=== PATIENT | female | born 1970 | race African-American/Black ===

== ENCOUNTER 2020-03-31 07:05 | Inpatient (IN) | payer BC ==
[~2020-03-31] VITALS: Ht 160 cm; Wt 88.5 kg
[2020-03-31] MEDS ORDERED: MORPHINE 4 MG/ML INJ. SYRINGE IVP PRN (11:00)
[2020-03-31] MEDS ORDERED: ONDANSETRON HCL 4 MG/2 ML VIAL IVP PRN ×2 (11:00→11:30)
[2020-03-31] MEDS ORDERED: KETOROLAC TROMETHAMINE 30 MG VIAL IVP PRN (11:30)
[2020-03-31] MEDS ORDERED: BISACODYL 10 MG/SUPPOSITORY RC PRN (11:30)
[2020-03-31] MEDS ORDERED: OXYCODONE/ACETAMINOPHEN 5-325 TABLET PO PRN ×2 (11:30)
[2020-03-31] MEDS ORDERED: HYDROmorphone 2 MG TAB PO PRN (11:30)
[2020-03-31] MEDS ORDERED: SIMETHICONE 80 MG TAB.CHEW PO PRN (11:30)
[2020-03-31] MEDS ORDERED: SEVOFLURANE 15 MIN GAS INH ONE (11:40)
[2020-03-31] MEDS ORDERED: fentaNYL CITRATE/PF 100 MCG/2 ML AMP ONE (11:40)
[2020-03-31] MEDS ORDERED: WATER FOR IRRIGATION,STERILE 1,000 ML IRRIG.SOLN IR ONE (11:40)
[2020-03-31] MEDS ORDERED: SUCCINYLCHOLINE CHLORIDE 20 MG/ML(QUELICIN) ONE (11:40)
[2020-03-31] MEDS ORDERED: MIDAZOLAM HCL 5 MG/ML VIAL (VERSED) IV ONE (11:40)
[2020-03-31] MEDS ORDERED: PROPOFOL 200MG/ 20ML VIAL (DIPRIVAN) IV ONE (11:40)
[2020-03-31] MEDS ORDERED: LR 1,000 ML IV.SOLN IV ONE (11:40)
[2020-03-31] MEDS ORDERED: GLYCOPYRROLATE 0.2 MG/ML VIAL ONE (11:40)
[2020-03-31] MEDS ORDERED: CEFAZOLIN 2 GM IVPB PREMIX 50 ML IV ONE (11:40)
[2020-03-31] MEDS ORDERED: ONDANSETRON HCL 4 MG/2 ML VIAL ONE ×2 (11:40→12:12)
[2020-03-31] MEDS ORDERED: LIDOCAINE 1% 10 MG/ML, 20 ML MDV ONE (11:40)
[2020-03-31] MEDS ORDERED: ROCURONIUM BROMIDE 10 MG/ML (ZEMURON) ONE (11:40)
[2020-03-31] MEDS ORDERED: NEOSTIGMINE METHYLSULFATE 1 MG/ML, 10 ML VIAL ONE (11:40)
[2020-03-31] MEDS ORDERED: NS IRRIG SOLN 1000 ML IR ONE (11:40)
[2020-03-31] MEDS: HYDROmorphone 1 MG INJ. 1 MG/ML AMPUL IVP PRN ×2 (11:52→12:28)
[2020-03-31] MEDS ORDERED: HYDROmorphone 2 MG/ML VIAL ONE (12:05)
[2020-03-31] MEDS ORDERED: NALOXONE HCL 0.4 MG/ML AMP (NARCAN) IVP PRN (12:15)
[2020-03-31] MEDS ORDERED: HYDROMORPHONE PCA 10 mg/50 mL IV PRN (12:15)
[2020-03-31] MEDS ORDERED: ACYC400T PO (13:31)
--- NOTE | 2020-03-31 13:31 | NUR ---
ADMIT NOTE Received pt AAOx4, no s/s resp distress, no c/o pain or discomfort-pt on HARDBOARD SUPERVISOR Dilaudid 0.5mg Q 15 min, 2 mg 4 hour limit. Pt on LR at 125 ml/hr to right wrist with no s/s infiltration to site. Davis draining to gravity with yellow urine. BLE with SCDs in place. Dressing to lower abd clean, dry and intact. Band to mid abd slightly above belly button clean. dry and intact. Plan of care for the day reviewed with pt-pt verbalized her understanding. Pt oriented to room, call light, pain management, skin and safety discussed-teach back done. Call light within reach.
[2020-03-31 14:00] VITALS: BP_SYST 122
[2020-03-31] MEDS: LR 1,000 ML IV SCH ×2 (15:35→22:28)
--- NOTE | 2020-03-31 15:48 | NUR ---
NAUSEA Pt sat up in bed and then a some nausea-pt given Zofran as ordered. Light turned down low to promote rest. Needs met, call light within reach.
[2020-03-31 16:15] VITALS: BP_SYST 106
--- NOTE | 2020-03-31 19:30 | NUR ---
CLOSING NOTE Pt resting quietly in bed with no s/s resp distress, pt c/o mild pain-using BODY MAKE UP ARTIST Dilaudid. Pt given Jello x2 per request. Needs met, call light within reach.
[2020-03-31 21:00] VITALS: BP_SYST 114
[2020-03-31] MEDS ORDERED: TEMAZEPAM 15 MG CAPSULE PO PRN (21:00)
--- NOTE | 2020-03-31 21:15 | NUR ---
ABDOMINAL DRESSING CLEAN DRY ALSO INTACT NO BLEEDING NOTED skin dry warm patient Watching TV .
[2020-04-01 00:14] VITALS: BP_SYST 114
--- NOTE | 2020-04-01 00:19 | NUR ---
Patient awake alert verbally indicative does ambulate Respirations Remain Regular also unlabored call villegas with patient .
--- NOTE | 2020-04-01 00:22 | NUR ---
DILAUDID POWER PRESS OPERATOR PUMP DOSE 0.5 MG LOCK OUT 15 MINUTE MAX HOUR LIMIT 2 MG . NO ACUTE DISTRESS .
--- NOTE | 2020-04-01 02:54 | NUR ---
Hourly Rounding Patient Resting this hour chest movement symmetrical verbally Responsive call villegas with patient Fall MEASURES IMPLEMENTED / .
--- NOTE | 2020-04-01 04:42 | NUR ---
REGALADO catheter has been d/c patient awake also alert no complaints made .
[2020-04-01] MEDS: LR 1,000 ML IV SCH ×3 (04:47→19:25)
--- NOTE | 2020-04-01 06:28 | NUR ---
ASSIST OUT OF BED AMBULATES USING REST ROOM URINATING , ALERT & ORIENTED no complaints made .
--- NOTE | 2020-04-01 07:30 | NUR ---
Opening Notes Patient is awake, alert and oriented x4. No resp distress noted. Breathing is even and unlabored. Patient is ambulatory with assistance. Patient denies any pain at this time. APARTMENT MAINTENANCE SUPERVISOR pump at bedside, available for the patient to push for pain relief. IV site on right hand, 22 gauge, intact, LR @ 125 ml/hr, infusing well. No bleeding noted at incision site on lower abdomen. All needs met at this time. Safety and fall precautions in place. Call light within reach. Bed in lowest position, locked. Will continue to monitor
[2020-04-01 08:00] VITALS: BP_SYST 145
--- NOTE | 2020-04-01 08:00 | NUR ---
Dr. King is at patients bedside
[2020-04-01 09:20] LABS: BASOPHILS % (AUTO) 0.3 % (0.0-2.0); EOSINOPHILS % (AUTO) 0.4 % (0.0-4.0); HEMATOCRIT 37.9 % (36-48); HEMOGLOBIN 12.8 g/dL (12.0-16.0); LYMPHOCYTES # (AUTO) 1.3 K/uL (1.0-5.5); LYMPHOCYTES % (AUTO) 21.3 % (20.5-51.5); MEAN CORPUSCULAR HEMOGLOBIN 29 pg (27-31); MEAN CORPUSCULAR HGB CONC 34 % (32-36); MEAN CORPUSCULAR VOLUME 86 fL (79.0-98.0); MONOCYTES # (AUTO) 0.4 K/uL (0.0-1.0); MONOCYTES % (AUTO) 7.3 % (1.7-9.3); NEUTROPHILS # (AUTO) 4.2 K/uL (1.8-7.7); NEUTROPHILS % (AUTO) 70.7 % (40.0-70.0); PLATELET COUNT (AUTO) 171 K/uL (130-430); RED CELL DISTRIBUTION WIDTH 13.1 % (9.0-15.0)
--- NOTE | 2020-04-01 09:29 | NUR ---
PAGED PAGED AT [phone] SPOKE WITH EXCHANGE.
--- NOTE | 2020-04-01 09:50 | NUR ---
DC DATA ENTRY CLERK Pump Obtained new orders from Dr. King to DC DATA ENTRY CLERK pump. Patient has PRN pain medications PO, if needed. Plan is to discharge patient tomorrow. Noted and carried out.
--- NOTE | 2020-04-01 10:00 | NUR ---
Notes Patient is awake, alert and oriented x4. No resp distress noted. Breathing is even and unlabored. Patient denies any pain at this time. All needs met at this time. Safety and fall precautions in place. Bed in lowest position, locked. Will continue to monitor.
[2020-04-01] MEDS: IBUPROFEN 800 MG TABLET PO PRN ×2 (11:59→20:09)
--- NOTE | 2020-04-01 12:00 | NUR ---
Notes/Pain Patient is awake, alert and oriented x4. Patient c/o 8/10 general body pain. Administered Motrin 800 mg PO, tolerated well. Patient is eating lunch at this time. No resp distress. Breathing is even and unlabored. Safety and fall precautions in place. Call light within reach. Bed in lowest position, alarm on, locked.
--- NOTE | 2020-04-01 14:00 | NUR ---
Notes Patient is awake, alert and oriented, watching TV in bed. NO resp distress noted. Breathing is even and unlabored. Patient reports relief from pain. Patients incision site was noted with minimal bleeding, controlled at this time. Patient is ambulatory with assistance. Nurse assisted patient to restroom. All needs met at this time. Safety and fall precautions in place. Call light within reach. Bed in lowest position, locked.
--- NOTE | 2020-04-01 16:17 | NUR ---
Instructional Support Assistant: Conduct a DCPA FARM CONTRACTOR met with pt. bedside. She had been resting with her eyes closed. FARM CONTRACTOR introduced self. Pt. was kind and pleasant. She stated she was comfortable and was not in any pain. She stated she was ambulating, but was instructed not to do so. She was able to confirm her demographic info. on the facesheet. She stated she has a good support system in place. She has her daughter, Carrie who is local and her boyfriend, Cleveland Adamson who will be checking in on her. FARM CONTRACTOR asked pt. if she ever needed any mental lesely services such as therapy, ever been Dx. with any depression, anxieyt etc. Pt. stated she resides alone, but has two small dogs that are like her therapy. She divulged that she is at [facility] for the past 7 years and during that time she had been anxious. She stated she does not feel anxious. Pt. stated she has never felt suicidal. Pt. did not have any issues of concern nor did she have any needs. FARM CONTRACTOR will remain available as needed.
--- NOTE | 2020-04-01 16:43 | NUR ---
Notes Patient is resting at this time. Nurse assisted patient to the restroom. Patient reports no BM for the past few days. Will give stool softener. No resp distress noted. Breathing is even and unlabored. All needs met at this time. Bed in lowest position, locked.
[2020-04-01] MEDS: DOCUSATE SODIUM 100 MG CAPSULE PO PRN ×2 (17:17→20:55)
--- NOTE | 2020-04-01 17:30 | NUR ---
Colace Patient c/o having no BM for a few days. Administered Colace PO, tolerated well. Will monitor for BM.
[2020-04-01 19:00] VITALS: BP_SYST 151
--- NOTE | 2020-04-01 19:15 | NUR ---
change of shift.pt.status s/p surgery x 1day.pt.had recieved the administration dilaudid via slide fastener chain assembler pump;\d/c:04/01/20.to f/u re;pain mgx.pt.presents incision;location;abdomen:approximated. absent drainage.pt.presents iv fluids;via peripheral line.pt.capable to ambulate/reposition self. call light/telephone w/in reach of the pt.
[2020-04-01 20:00] VITALS: BP_SYST 151
--- NOTE | 2020-04-01 20:00 | NUR ---
pt.assessed.v/s assessed.values w/in normal limits.pt.had requested medication;pain. i have administered motrin;600mg po;to re-assess the pain medication efficacy per pain mgx protocol.pt.had requested medication constipation;to page ;re medication constipation.general status stable respiratory status stable;unlabored.call light/telephone w/in reach of the pt.
[2020-04-01] MEDS ORDERED: MILK OF MAGNESIA 30 ML UDC PO PRN (20:45)
--- NOTE | 2020-04-01 21:00 | NUR ---
2100pmedications administered.pt.had requested medication;pain,constipation.i have administered percocet;5/325mg po 2 tabs,mom;constipation,simethicone;gas pain.the iv fluids d/c;2/t md order; d/c iv fluids when pt.tolerating po fluids.pt.had ambulated to the restroom.unassisted;gait assessed; w/in normal limits.general status stable;respiratory status stable;unlabored.call light/telephone w/in reach of the pt.
--- NOTE | 2020-04-01 22:00 | NUR ---
pt.assessed.pt.presents quiescent affect;calm,resting viewing tv programming.no c/o pain,nausea. pt.capable to reposition self.general status stable.respiratory status stable;unlabored.call light/ telephone w/in reach of the pt.
[2020-04-02] VITALS: BP_SYST 145
--- NOTE | 2020-04-02 | NUR ---
pt.assessed.v/s assessed values w/in niormal limits.no c/o pain,nausea.pt.ambulating to the restroom. general status stable.respiratory status stable;unlabored.call light/telephone w/in reach of the pt.
[2020-04-02 01:24] VITALS: BP_SYST 119
--- NOTE | 2020-04-02 02:00 | NUR ---
pt.assessed.pt.presents quiescent affect;calm,somnolent.pt.capable to reposition self. no c/o pain,nausea.general status stable.respiratory status stable.unlabored.call light/ telephone w/in reach of the pt.
[2020-04-02] MEDS: LR 1,000 ML IV SCH (03:25)
--- NOTE | 2020-04-02 04:00 | NUR ---
pt.assessed.pt.presents quiescent affect;calm,somnolent.pt.capable to reposition self. no c/o pain,nausea.no requests posited@this hour.call light/telephone w/in reach of the pt.
--- NOTE | 2020-04-02 06:25 | NUR ---
pt.assessed.pt.presents quiescent affect;calm,somnolent.pt.presents general status stable. respiratory status stable;unlabored.pt.capable to reposition self.call light/telephone w/in reach of the pt.
--- NOTE | 2020-04-02 07:45 | NUR ---
Initial notes: Patient is awake and alert. She is not showing any signs of distress and denies any pain at this time. She currently has a patent R wrist 22g IV that is patent. Her incision on her abdomen is dry and intact. She currently is on RA and on a regular diet. She is able to ambulate without any difficulty and eat without any difficulty. She may be able to go home today if everything continues being stable and PMD gives clearance. I got a full report from the shift foreman nurse. Bed is low, locked, 2 side rails up and call light is within reach. Bobby RODRIGUEZ
[2020-04-02 08:00] VITALS: BP_SYST 132
--- NOTE | 2020-04-02 08:07 | NUR ---
Nutrition Update Juan M Scale 13 noted. Pt admitted for excessive and frequent menstruation. Diet: Regular BMI: 34.5 kg/m2 RD to follow per nutrition care standards.
--- NOTE | 2020-04-02 10:02 | NUR ---
Patient is in bed, talking on the phone, she does not present any complaints, is not in distress and denies pain at this time. Bed is low, locked, 2 side rails up and call light is within reach. Bobby RODRIGUEZ
--- NOTE | 2020-04-02 12:09 | NUR ---
Patient is in bed having her meal and talking to the patient next door, she is not in any distress and denies any pain at this time. I informed her that I got a DC order and she can call her ride to pick her up around 1pm. She verbalized comprehension. Bed is low, locked, 2 side rails up and call light is within reach. Bobby RODRIGUEZ
[2020-04-02 12:50] VITALS: BP_SYST 134
[2020-04-02] MEDS: IBUPROFEN 800 MG TABLET PO PRN (13:15)
[2020-04-02] MEDS ORDERED: ACYC400T PO (13:18)
[2020-04-02 13:19] VITALS: BP_SYST 130
--- NOTE | 2020-04-02 13:30 | NUR ---
Discharge : Patient was given d/c instructions and patient education. Patient was given the chance to ask questions, she verbalized comprehension upon education. She signed paper work, IV was removed and she changed to her clothes. A friend will be picking her up. Bobby RODRIGUEZ
== END 2020-04-02 17:17 | disposition home or self-care (01) | DRG 513 ==
LOC: SDS 07:05 → SMU 07:05 → EEVIPCON 11:00 → SMU 11:30 → EEVIPCON 11:30 → SDS 13:26 → STU 23:45 → SMU 04-01 17:10
PROVIDERS: ADMIT Obstetrics & Gynecology; ATTEND Obstetrics & Gynecology
PROC: 0DNW4ZZ Release Peritoneum, Percutaneous Endoscopic Approach (ICD-10-PCS; 2020-03-31)
PROC: 0UJD4ZZ Inspection of Uterus and Cervix, Percutaneous Endoscopic Approach (ICD-10-PCS; 2020-03-31)
PROC: 0UT90ZL Resection of Uterus, Supracervical, Open Approach (ICD-10-PCS; principal; 2020-03-31 10:30)
DX: N92.0 Excessive and frequent menstruation with regular cycle (principal); Z20.828 Contact with and (suspected) exposure to other viral communicable diseases
CPT/HCPCS: 36415; 85025; 88305; G0378; J0330; J0690; J1170; J2001; J2250; J2405; J2704; J2710; J3010; J3490; J7120; U0003-CS